=== PATIENT | female | born 1960 | race Caucasian/White ===

== ENCOUNTER 2020-11-02 19:33 | Emergency (ER) | payer BC, OTHER ==
--- NOTE | 2020-11-02 20:05 | EDM.PDOC ---
ED HPI GENERAL MEDICAL PROBLEM - General Chief Complaint: General Stated Complaint: Headache Time Seen by Provider: 11/02/20 19:53 Source of Information: Reports: Patient History Limitations: Reports: No Limitations - History of Present Illness INITIAL COMMENTS - FREE TEXT/NARRATIVE: Patient presents with headaches and unequal pupils. She tells me that starting yesterday she has had 2-4 headaches each day that last about 30 minutes. They aren't like the migraines she occasionally gets, and bright lights and sounds aren't bothering her with these. She describes it a "brain-freeze" headache. She has had 3 or 4 today but gone currently. Yesterday someone noticed her pupils and she looked in the mirror; she noticed the right was noticeably smaller than the left. When comparing with the pupil-size guide she estimates her right was 3mm and left 5mm. Currently I measure 3.5 on right and 4 on left. There is a subtle difference. She says her daughter has told her that she commonly has noticed (mom) has slightly different sized pupils. She denies any recent injury or trauma. - Related Data Allergies Allergy/AdvReac Type Severity Reaction Status Date / Time No Known Drug Allergies Allergy Other Verified 11/02/20 19:34 Home Meds: Home Meds Aspirin [Aspirin EC] 81 mg PO DAILY 11/02/20 [History] Multivitamin 1 tab PO DAILY 11/02/20 [History] rOPINIRole [Requip] 0.25 mg PO DAILY 11/02/20 [History] Past Medical History HEENT History: Reports: None Cardiovascular History: Reports: None Respiratory History: Reports: None Gastrointestinal History: Reports: Other (See Below) Other Gastrointestinal History: Stomach ulcer years ago. Nausea with stress. 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: Musculoskeletal History: Reports: None Neurological History: Reports: Migraines Psychiatric History: Reports: Anxiety, Depression Endocrine/Metabolic History: Reports: None Hematologic History: Reports: None Immunologic History: Reports: None Oncologic (Cancer) History: Reports: Malignant Melanoma - Infectious Disease History Infectious Disease History: Reports: Chicken Pox - Past Surgical History HEENT Surgical History: Reports: None Cardiovascular Surgical History: Reports: None Respiratory Surgical History: Reports: None Female Surgical History: Reports: Section Endocrine Surgical History: Reports: None Neurological Surgical History: Reports: None Musculoskeletal Surgical History: Reports: None Social & Family History - Tobacco Use Tobacco Use Status *Q: Current Every Day Tobacco User Years of Tobacco use: 45 Packs/Tins Daily: 0.5 - Caffeine Use Caffeine Use: Reports: Coffee Caffeine Use Comment: Coffee only in morning. - Recreational Drug Use Recreational Drug Use: No ED ROS GENERAL - Review of Systems Review Of Systems: See Below Constitutional: Denies: Fever, Chills, Malaise, Weakness HEENT: Denies: Ear Pain, Throat Pain, Vision Change Respiratory: Denies: Shortness of Breath, Cough Cardiovascular: Denies: Chest Pain, Lightheadedness, Syncope GI/Abdominal: Denies: Abdominal Pain, Nausea, Vomiting : Denies: Dysuria, Flank Pain Musculoskeletal: Denies: Neck Pain, Shoulder Pain, Arm Pain, Back Pain, Hand Pain, Leg Pain Skin: Denies: Cyanosis, Jaundice, Mottled, Pallor, Diaphoresis Neurological: Denies: Confusion, Dizziness, Headache (gone now), Seizure, Syncope, Tingling, Trouble Speaking, Difficulty Walking (now balance problems), Weakness Psychiatric: Denies: Agitation, Anxiety, Confusion Hematologic/Lymphatic: Denies: Easy Bleeding ED EXAM, GENERAL - Physical Exam Exam: See Below Exam Limited By: No Limitations General Appearance: Alert, WD/WN, No Apparent Distress Eye Exam: Bilateral Eye: EOMI, Normal Inspection (full visual francois bilat), PERRL (roughly equal; 3.5mm R, 4mm L) Ears: Normal External Exam, Normal Canal, Hearing Grossly Normal, Normal TMs Nose: Normal Inspection, No Blood Throat/Mouth: Normal Inspection, Normal Lips, Normal Voice, No Airway Compromise Head: Atraumatic, Normocephalic Neck: Normal Inspection, Full Range of Motion Respiratory/Chest: No Respiratory Distress, Lungs Clear, Normal Breath Sounds Cardiovascular: Regular Rate, Rhythm, No Murmur GI/Abdominal: Normal Bowel Sounds, Soft, Non-Tender, No Organomegaly, No Distention Back Exam: Normal Inspection, Full Range of Motion. No: CVA Tenderness (L), CVA Tenderness (R) Extremities: Normal Inspection, Normal Range of Motion Neurological: Alert, Oriented, CN II-XII Intact, Normal Cognition, Normal Gait, No Motor/Sensory Deficits Psychiatric: Normal Affect, Normal Mood Skin Exam: Warm, Dry, Intact, Normal Color, No Rash Course - Vital Signs Last Recorded V/S: Last Vital Signs Temp 97.1 F 11/02/20 19:39 Pulse 70 11/02/20 20:26 Resp 16 11/02/20 20:26 BP 152/78 H 11/02/20 20:26 Pulse Ox 97 11/02/20 20:26 - Orders/Labs/Meds Orders: Active Orders 24 hr Category Date Time Status EKG Documentation Completion [RC] ASDIRECTED Care 11/02/20 20:14 Ordered EKG 12 Lead [EK] Stat Ther 11/02/20 20:14 Ordered - Re-Assessments/Exams Free Text/Narrative Re-Assessment/Exam: 11/02/20 21:[address] shows no acute intracranial findings. Discussed case with Dr. Ruff, neurologist at [facility] in [place] who recommends CTA of head and neck. He says it is about a 3% chance that there is a vascular origin so doesn't know if it is worth sending her to [facility]. He suggested getting CTA nearer if available. I talked with Delmy who says we haven't done them here but should be able to be set up and she will look into it but I don't want to do that tonight. [facility] can do CTAs but only scheduled. I discussed findings and treatment recommendations with patient and she wants to wait and do it tomorrow in [place]. The provider there will call me in the morning for details and then will likely have to order it there. She is aware of the risk of not doing it tonight but doesn't want to go to [facility] either. Patient stable at discharge. Departure - Departure Time of Disposition: 21:23 Disposition: Home, Self-Care 01 Condition: Good Clinical Impression: Headache, Unequal pupil diameter - Discharge Information Referrals: Vania Joshua, [facility] [Primary Care Provider] - Forms: ED Department Discharge Additional Instructions: Plan on getting a CTA at [facility] tomorrow. If you don't hear from me or [place] tomorrow morning call the [facility] for details. If worsening go to [facility]. Sepsis Event Note (ED) - Evaluation Sepsis Screening Result: No Definite Risk - Focused Exam Vital Signs: Vital Signs Temp Pulse Resp BP Pulse Ox 11/02/20 20:26 70 16 152/78 H 97 11/02/20 20:00 81 18 162/73 H 96 11/02/20 19:39 97.1 F 84 20 155/80 H 95 - My Orders Last 24 Hours: My Active Orders 11/02/20 20:14 EKG Documentation Completion [RC] ASDIRECTED EKG 12 Lead [EK] Stat - Assessment/Plan Last 24 Hours: My Active Orders 11/02/20 20:14 EKG Documentation Completion [RC] ASDIRECTED EKG 12 Lead [EK] Stat
--- NOTE | 2020-11-02 20:40 | CT ---
[id number] CT/CT Head WO IV EXAM: CT Head WO IV CLINICAL DATA: HEADACHE, UNEQUAL PUPILS COMPARISON STUDY: None FINDINGS: No intracranial hemorrhage, extra-axial fluid collection, mass, or acute ischemia. No hydrocephalus. Subtle areas of hypodensity in the subcortical and periventricular white matter of cerebral hemispheres. Findings are nonspecific but suggest underlying chronic small vessel disease. Calvarium intact. Paranasal sinuses and mastoid air cells are clear. IMPRESSION: No acute intracranial findings. Ashok Ricardo MD 11/02/202038 Thank you for allowing us to participate in the care of your patient.
== END 2020-11-02 21:35 | disposition home or self-care (01) ==
LOC: KA.ED 19:33
DX: H57.02 Anisocoria (principal)
CPT/HCPCS: 70450; 93005; 99284; 99284-25